=== PATIENT | male | born 1990 | race Caucasian/White ===

== ENCOUNTER 2023-07-02 19:24 | Emergency (ER) | payer OTHER ==
[2023-07-02 19:32] VITALS: BMI 26.6
[2023-07-02] MEDS ORDERED: LACTATED RINGERS SOLUTION 1000 ML INFUS.BAG IV ONE (20:50)
[2023-07-02] MEDS ORDERED: METOCLOPRAMIDE HCL INJECTION 10 MG/2 ML VIAL IVPUSH ONE (20:50)
[2023-07-02] MEDS ORDERED: methylPREDNISolone NA SUCC 125 MG/2 ML VIAL IVPUSH ONE (20:54)
[2023-07-02] MEDS ORDERED: methylPREDNISolone NA SUCC 125 MG/2 ML VIAL ONE (22:06)
[2023-07-02] MEDS ORDERED: METOCLOPRAMIDE HCL INJECTION 10 MG/2 ML VIAL ONE (22:06)
[2023-07-02 22:21] LABS: BASO % 0.5 % (0-2.0); EOS % 0.5 % (0-4.5); HEMATOCRIT 47.4 % (35.4-49); HEMOGLOBIN 15.7 GM/dL (11.7-16.9); LYMPH % 7.8 % (8-40); MCHC 33.1 g/dl (32.0-35.9); MEAN CELL VOLUME 75.7 fl (80-96); MEAN PLT VOLUME 9.4 fl (7.5-11.1); MONO % 8.4 % (3.8-10.2); NEUT % 82.8 % (42.8-82.8); PLATELET COUNT 215 10^3/uL (134-434); RBC 6.26 M/mm3 (4.00-5.60); RDW 13.9 % (11.9-15.9); WHITE BLOOD COUNT 16.3 K/mm3 (4.0-10.0)
[2023-07-02 22:45] LABS: POTASSIUM 3.8 mmol/L (3.5-5.1)
[2023-07-02 22:47] LABS: BLOOD UREA NITROGEN 10.4 mg/dL (7-18); CALCIUM 8.8 mg/dL (8.5-10.1)
[2023-07-02 22:48] LABS: ALBUMIN 4.1 g/dl (3.4-5.0)
[2023-07-02 22:51] LABS: CREATININE 1.1 mg/dL (0.55-1.3)
[2023-07-02 22:52] LABS: BILIRUBIN,TOTAL 0.6 mg/dL (0.2-1); TOT PROT 7.5 g/dl (6.4-8.2)
[2023-07-02] MEDS ORDERED: HYDROmorphone HCl 2 MG/ML VIAL IVPUSH ONE (23:29)
[2023-07-03 03:59] LABS: BF GLUCOSE (CSF ONLY) 63 mg/dL (40-70)
[2023-07-03 04:54] VITALS: BP 129/71; PULSE 87; RESP 15; TEMP 98.4
[2023-07-03] MEDS ORDERED: SODIUM CHLORIDE 1,000 ML IV STA (05:03)
[2023-07-03] MEDS ORDERED: HYDROmorphone HCl 2 MG/ML VIAL ONE (05:20)
[2023-07-03 06:33] LABS: CSF APPEARANCE CLEAR (CLEAR); CSF COLOR COLORLESS (COLORLESS)
[2023-07-03 06:34] LABS: CSF WBC 2 mm3 (0-5); OTHER CELLS 1
== END 2023-07-03 07:11 | disposition home or self-care (01) ==
LOC: JER 19:24
PROC: 009U3ZX Drainage of Spinal Canal, Percutaneous Approach, Diagnostic (ICD-10-PCS; principal; 2023-07-02)
PROC: 3E033NZ Introduction of Analgesics, Hypnotics, Sedatives into Peripheral Vein, Percutaneous Approach (ICD-10-PCS; 2023-07-02)
PROC: 3E033GC Introduction of Other Therapeutic Substance into Peripheral Vein, Percutaneous Approach (ICD-10-PCS; 2023-07-02)
PROC: 3E033GC Introduction of Other Therapeutic Substance into Peripheral Vein, Percutaneous Approach (ICD-10-PCS; 2023-07-02)
PROC: 3E033GC Introduction of Other Therapeutic Substance into Peripheral Vein, Percutaneous Approach (ICD-10-PCS; 2023-07-02)
PROC: 3E0337Z Introduction of Electrolytic and Water Balance Substance into Peripheral Vein, Percutaneous Approach (ICD-10-PCS; 2023-07-02)
DX: G43.909 Migraine, unspecified, not intractable, without status migrainosus (principal)
CPT/HCPCS: 0241U-QW; 36415; 70450-TC; 70496-TC; 70498-TC; 80053; 82945; 84157; 85025; 87070; 87186; 87205; 99285-25; Q9967